=== PATIENT | male | born 1970 | race Caucasian/White ===

== ENCOUNTER 2016-07-21 15:32 | Emergency (ER) | payer MEDICAID ==
[~2016-07-21] VITALS: Ht 177.8 cm; Wt 82.0 kg
[~2016-07-21 15:32] MED LIST: BUSP30TA2 PO; HYDR25TA PO; IBUP-1509 PO; OMEP20TA15 PO
[2016-07-21] MEDS ORDERED: TETANUS, DIPHTHERIA, PERTUSSIS VAC/PF 0.5ML (>7YR OLD) IM ONE (17:45)
[2016-07-21] MEDS ORDERED: IBUPROFEN 800MG TABLET PO ONE (17:45)
[2016-07-21] MEDS ORDERED: SILVER SULFADIAZINE 1% CREAM 25GM TOP ONE (17:45)
[2016-07-21 18:19] VITALS: BP 121/74
== END 2016-07-21 18:22 | disposition home or self-care (01) ==
LOC: ER 16:26
DX: T21.11XA Burn of first degree of chest wall, initial encounter (principal); E78.00 Pure hypercholesterolemia, unspecified; I10 Essential (primary) hypertension; Z79.1 Long term (current) use of non-steroidal anti-inflammatories (NSAID); Z79.899 Other long term (current) drug therapy; X08.8XXA Exposure to other specified smoke, fire and flames, initial encounter; Y93.89 Activity, other specified; Y92.89 Other specified places as the place of occurrence of the external cause; Y99.8 Other external cause status
CPT/HCPCS: 90471; 90715; 99283

== ENCOUNTER 2016-07-26 12:31 | Emergency (ER) | payer MEDICAID ==
[~2016-07-26] VITALS: Ht 175.3 cm; Wt 78.0 kg
[2016-07-26 12:45] VITALS: BP 124/68
== END 2016-07-26 16:21 | disposition home or self-care (01) ==
LOC: ER 13:46
DX: M25.511 Pain in right shoulder (principal); Z79.1 Long term (current) use of non-steroidal anti-inflammatories (NSAID); Z79.899 Other long term (current) drug therapy
CPT/HCPCS: 99282

== ENCOUNTER 2016-08-10 11:24 | Emergency (ER) | payer MEDICAID ==
[~2016-08-10] VITALS: Ht 175.3 cm; Wt 78.0 kg
[2016-08-10] MEDS ORDERED: IBUPROFEN 600MG TABLET PO ONE (13:15)
[2016-08-10 13:45] VITALS: BP 121/75
== END 2016-08-10 13:47 | disposition home or self-care (01) ==
LOC: ER 12:43
DX: F41.1 Generalized anxiety disorder (principal); M25.511 Pain in right shoulder; Z79.1 Long term (current) use of non-steroidal anti-inflammatories (NSAID); Z79.899 Other long term (current) drug therapy
CPT/HCPCS: 93005; 99283; Z7610

== ENCOUNTER 2021-10-24 22:57 | Emergency (ER) | payer MEDICAID ==
[~2021-10-24] VITALS: Ht 172.7 cm; Wt 100.0 kg
[~2021-10-24 22:57] MED LIST changes: -IBUP-1509 PO; +IBUP-2028 PO
[2021-10-24 22:59] VITALS: BP 132/76
[2021-10-25] MEDS ORDERED: ACETAMINOPHEN 500MG TABLET PO ONE (00:15)
[2021-10-25] MEDS ORDERED: LIDOCAINE HCL/PF 1% 10 MG/ML 5ML VIAL INFIL ONE (00:15)
[2021-10-25] MEDS ORDERED: BACITRACIN ZINC OINT UDPKT TOP ONE (00:15)
[2021-10-25] MEDS ORDERED: IBUP-2029 MT (02:05)
== END 2021-10-25 03:16 | disposition home or self-care (01) ==
LOC: ER 23:22
DX: S01.511A Laceration without foreign body of lip, initial encounter (principal); S02.5XXA Fracture of tooth (traumatic), initial encounter for closed fracture; S00.33XA Contusion of nose, initial encounter; Y04.2XXA Assault by strike against or bumped into by another person, initial encounter; Y93.89 Activity, other specified; Y92.488 Other paved roadways as the place of occurrence of the external cause
CPT/HCPCS: 12011; 70486; 99284

== ENCOUNTER 2021-10-29 10:21 | Emergency (ER) | payer MEDICAID, OTHER ==
[~2021-10-29] VITALS: Ht 175.3 cm; Wt 93.0 kg
[~2021-10-29 10:21] MED LIST changes: +IBUP-2029 MT
[2021-10-29 12:34] VITALS: BP 133/89
== END 2021-10-29 12:37 | disposition home or self-care (01) ==
LOC: ER 10:21
DX: S01.511D Laceration without foreign body of lip, subsequent encounter (principal); X58.XXXD Exposure to other specified factors, subsequent encounter; Z79.899 Other long term (current) drug therapy
CPT/HCPCS: 99281